=== PATIENT | female | born 1985 | race Caucasian/White ===

== ENCOUNTER 2020-03-02 09:15 | Emergency (ER) | payer SELFPAY ==
[~2020-03-02] VITALS: Ht 172.7 cm; Wt 75.0 kg
[2020-03-02] MEDS ORDERED: IBUPROFEN 600MG TABLET PO ONE (10:15)
[2020-03-02] MEDS ORDERED: TETANUS, DIPHTHERIA, PERTUSSIS VAC/PF 0.5ML (>7YR OLD) IM ONE (11:00)
[2020-03-02] MEDS ORDERED: BACITRACIN ZINC OINT UDPKT TOP ONE (11:00)
[2020-03-02 11:40] VITALS: BP 108/78
== END 2020-03-02 11:41 | disposition home or self-care (01) ==
LOC: ER 10:42
DX: S93.492A Sprain of other ligament of left ankle, initial encounter (principal); S63.591A Other specified sprain of right wrist, initial encounter; S61.210A Laceration without foreign body of right index finger without damage to nail, initial encounter; W17.89XA Other fall from one level to another, initial encounter; Y93.89 Activity, other specified; Y92.59 Other trade areas as the place of occurrence of the external cause
CPT/HCPCS: 73130; 73610; 73630; 90471; 90715; 99284